=== PATIENT | male | born 1955 | race Caucasian/White ===

== ENCOUNTER 2020-06-06 12:49 | Outpatient (CLI) | payer MEDICARE, SELFPAY ==
[2020-06-06 12:59] VITALS: BP 133/85; PULSE 80; RESP 17; TEMP 36.6; O2SAT 98; BMI 34.8
--- NOTE | 2020-06-06 13:26 | AMB.MCA ---
Patient Information [facility] COVID test results: No Data to Display Criteria/Plan Inclusion/Exclusion Criteria weight >/= 40kg age >/= 65 not requiring hospitalization, not requiring oxygen (if not chronically on oxygen) and no increase oxygen requirement (if chronically on oxygen) Patient education patient/caregiver received/reviewed fact sheet, Emergency Use Authorization/unapproved drug status discussed with patient/caregiver, alternatives to this treatment discussed with patient/caregiver, risks and benefits of medication reviewed with patient/caregiver, patient/caregiver given opportunity for questions, which were answered and patient/caregiver consents to receiving Monoclonal Antibody Treatment Plan for treatment Meets criteria for Monoclonal Antibody infusion
[2020-06-06 14:46] VITALS: BP 112/83; PULSE 65; RESP 17; TEMP 36.7; O2SAT 96
[2020-06-06 15:39] VITALS: BP 132/89; PULSE 79; RESP 18; TEMP 37.1; O2SAT 97
== END 2020-06-06 15:40 | disposition home or self-care (01) ==
LOC: OPS 12:50
PROVIDERS: PCP Family Medicine; Referring Provider Nurse Practitioner Family; Visit Provider Nurse Practitioner
DX: U07.1 COVID-19 (principal)

== ENCOUNTER → 2021-12-19 08:54 | Outpatient (BNVA) | payer MEDICARE, SELFPAY | PROVIDERS: PCP Family Medicine; Visit Provider Family Medicine | DX: E78.5 Hyperlipidemia, unspecified (principal); Z00.00 Encounter for general adult medical examination without abnormal findings | CPT/HCPCS: 80053; 80061; 83036 ==

== ENCOUNTER → 2022-08-14 11:07 | Outpatient (BNVA) | payer MEDICARE, SELFPAY | PROVIDERS: PCP Family Medicine; Visit Provider Family Medicine | DX: N35.919 Unspecified urethral stricture, male, unspecified site (principal); E78.5 Hyperlipidemia, unspecified; R73.03 Prediabetes; I10 Essential (primary) hypertension | CPT/HCPCS: 80053; 80061; 83036; 83735 ==

== ENCOUNTER → 2022-11-08 14:35 | Outpatient (BNVA) | payer MEDICARE, SELFPAY | PROVIDERS: PCP Family Medicine; Visit Provider Family Medicine | DX: L98.9 Disorder of the skin and subcutaneous tissue, unspecified (principal) | CPT/HCPCS: 88304 ==

== ENCOUNTER → 2023-01-21 09:38 | Outpatient (BNVA) | payer MEDICARE, SELFPAY | PROVIDERS: PCP Family Medicine; Visit Provider Family Medicine | DX: I10 Essential (primary) hypertension (principal); F32.A Depression, unspecified; E78.5 Hyperlipidemia, unspecified; R73.03 Prediabetes | CPT/HCPCS: 80053; 80061; 83036 ==

== ENCOUNTER 2023-01-29 10:23 | Outpatient (CLI) | payer MEDICARE, SELFPAY ==
--- NOTE | 2023-01-29 10:42 | XR_ITS ---
WS: [id number] EXAMINATION: XR knee LT 3V* [id number] REASON FOR EXAM: knee pain COMPARISON: None available. ORDER DATE: 01/29/2023 10:49 AM FINDINGS: There are marginal osteophytes associated with the tibial spines, patella and other articular margins with medial and patellofemoral compartment narrowing. There is no sign of any acute fracture or disl ocation. A small joint effusion cannot be excluded but there is no evidence of any large effusion IMPRESSION: MEDIAL AND PATELLOFEMORAL COMPARTMENT NARROWING WITH OSTEOARTHRITIC CHANGES.
--- NOTE | 2023-01-29 10:42 | XR_ITS ---
WS: [id number] EXAMINATION: XR knee RT 3V* [id number] REASON FOR EXAM: knee pain COMPARISON: None available. ORDER DATE: 01/29/2023 10:49 AM FINDINGS: There are marginal osteophytes associated with the tibial spines, patella and other articular margins with medial and patellofemoral compartment narrowing. There is no sign of any acute fracture or disl ocation. A small joint effusion cannot be excluded but there is no evidence of any large effusion IMPRESSION: MEDIAL AND PATELLOFEMORAL COMPARTMENT NARROWING WITH OSTEOARTHRITIC CHANGES.
== END 2023-01-29 10:24 | disposition home or self-care (01) ==
LOC: RAD 10:28
PROVIDERS: PCP Family Medicine; Visit Provider Family Medicine
DX: M17.0 Bilateral primary osteoarthritis of knee (principal)
CPT/HCPCS: 73562

== ENCOUNTER → 2023-04-26 10:03 | Outpatient (BNVA) | payer MEDICARE, SELFPAY | PROVIDERS: PCP Family Medicine; Visit Provider Family Medicine | DX: I10 Essential (primary) hypertension (principal); E78.5 Hyperlipidemia, unspecified; G25.81 Restless legs syndrome | CPT/HCPCS: 80053; 80061 ==

== ENCOUNTER → 2023-07-11 14:50 | Outpatient (BNVA) | payer MEDICARE, SELFPAY | PROVIDERS: PCP Family Medicine; Visit Provider Podiatrist Foot & Ankle Surgery | DX: B35.1 Tinea unguium (principal); R73.03 Prediabetes | CPT/HCPCS: 11721; 99203 ==

== ENCOUNTER → 2023-07-16 09:09 | Outpatient (BNVA) | payer MEDICARE, SELFPAY | PROVIDERS: PCP Family Medicine; Visit Provider Family Medicine | DX: I10 Essential (primary) hypertension (principal); R73.03 Prediabetes; R41.3 Other amnesia; N35.919 Unspecified urethral stricture, male, unspecified site; M15.9 Polyosteoarthritis, unspecified; F32.A Depression, unspecified; E78.5 Hyperlipidemia, unspecified | CPT/HCPCS: 80053; 80061; 83036 ==

== ENCOUNTER 2023-09-26 12:02 | Outpatient (CLI) | payer MEDICARE, SELFPAY ==
[2023-09-26 12:52] LABS: Alanine Aminotransferase 21 U/L (0-41); Albumin Level 3.8 g/dL (3.5-5.2); Alkaline Phosphatase 99 U/L (40-130); Anion Gap 12.7 (5-19); Aspartate Amino Transferase 20 U/L (0-40); Blood Urea Nitrogen 22 mg/dL (8-23); Calcium 8.5 mg/dL (8.5-10.5); Carbon Dioxide 26 mmol/L (22-29); Chloride 107 mmol/L (98-107); Globulin 3.1 g/dL (1.3-4.6); Glomerular Filtration Rate 95.6 mL/min (90-130); Glucose 120 mg/dL (65-115); Osmolality Calculated 297 mOsm/kg (285-295); Potassium 4.7 mmol/L (3.5-5.1); Sodium 141 mmol/L (136-145); Total Bilirubin 0.3 mg/dL (0.15-1.2); Total Protein 6.9 g/dL (6.6-8.7)
== END 2023-09-26 12:03 | disposition home or self-care (01) ==
LOC: LAB 12:04
PROVIDERS: PCP Family Medicine; Visit Provider Podiatrist Foot & Ankle Surgery
DX: B35.1 Tinea unguium (principal)
CPT/HCPCS: 80053

== ENCOUNTER → 2023-10-23 12:58 | Outpatient (BNVA) | payer MEDICARE, SELFPAY | PROVIDERS: PCP Family Medicine; Visit Provider Podiatrist Foot & Ankle Surgery | DX: L60.8 Other nail disorders (principal); B35.1 Tinea unguium; R73.03 Prediabetes | CPT/HCPCS: 11721; 99212 ==

== ENCOUNTER → 2024-01-28 10:12 | Outpatient (BNVA) | payer MEDICARE, SELFPAY | PROVIDERS: PCP Family Medicine; Visit Provider Family Medicine | DX: I10 Essential (primary) hypertension (principal); R73.03 Prediabetes | CPT/HCPCS: 80053; 80061; 83036 ==

== ENCOUNTER → 2024-02-24 08:30 | Outpatient (BNVA) | payer MEDICARE, SELFPAY | PROVIDERS: PCP Family Medicine; Visit Provider Podiatrist Foot & Ankle Surgery | DX: R73.03 Prediabetes (principal); L60.8 Other nail disorders; B35.1 Tinea unguium; R03.0 Elevated blood-pressure reading, without diagnosis of hypertension | CPT/HCPCS: 11721; 99212 ==

== ENCOUNTER → 2024-04-14 11:05 | Outpatient (BNVA) | payer MEDICARE, SELFPAY | PROVIDERS: PCP Family Medicine; Visit Provider Family Medicine | DX: E11.9 Type 2 diabetes mellitus without complications (principal); R60.9 Edema, unspecified | CPT/HCPCS: 80053; 83880; 84443 ==

== ENCOUNTER → 2024-05-25 08:51 | Outpatient (BNVA) | payer MEDICARE, SELFPAY | PROVIDERS: PCP Family Medicine; Visit Provider Podiatrist Foot & Ankle Surgery | DX: B35.1 Tinea unguium (principal); I73.9 Peripheral vascular disease, unspecified; E11.42 Type 2 diabetes mellitus with diabetic polyneuropathy; R60.0 Localized edema | CPT/HCPCS: 11721; 99213 ==

== ENCOUNTER → 2024-07-31 10:47 | Outpatient (BNVA) | payer MEDICARE, SELFPAY | PROVIDERS: PCP Family Medicine; Visit Provider Family Medicine | DX: I10 Essential (primary) hypertension (principal); E78.5 Hyperlipidemia, unspecified; R73.03 Prediabetes; E11.42 Type 2 diabetes mellitus with diabetic polyneuropathy | CPT/HCPCS: 80053; 80061; 83036; 85025 ==

== ENCOUNTER → 2024-08-24 09:06 | Outpatient (BNVA) | payer MEDICARE, SELFPAY | PROVIDERS: PCP Family Medicine; Visit Provider Podiatrist Foot & Ankle Surgery | DX: E11.42 Type 2 diabetes mellitus with diabetic polyneuropathy (principal); B35.1 Tinea unguium; E11.8 Type 2 diabetes mellitus with unspecified complications; I73.9 Peripheral vascular disease, unspecified; R60.0 Localized edema | CPT/HCPCS: 11721 ==

== ENCOUNTER → 2024-08-31 10:10 | Outpatient (BNVA) | payer MEDICARE, SELFPAY | PROVIDERS: PCP Family Medicine; Visit Provider Student in an Organized Health Care Education/Training Program | DX: Z12.11 Encounter for screening for malignant neoplasm of colon (principal) | CPT/HCPCS: 99024; 99204 ==

== ENCOUNTER 2024-09-10 07:11 | Outpatient (CLI) | payer MEDICARE, SELFPAY ==
--- NOTE | 2024-09-10 07:15 | USCV_ITS ---
Flynn Mcintosh Age: 69 Gender: M : 1955 Exam Date: 09/10/2024 07:28 Ordering Phys: Daniel Maloney MD Technologist: KEYANNA Exam Location: [facility] [place] Indication: SoB BP: 130 / 78 HR: 67 Rhythm: Sinus Technical Quality: Adequate MEASUREMENTS (Male / Female) Normal Values 2D ECHO LV Diastolic Diameter PLAX 7.0 cm 4.2 - 5.9 / 3.9 - 5.3 cm IVS Diastolic Thickness 1.0 cm 0.6 - 1.0 / 0.6 - 0.9 cm IVS Systolic Thickness 1.5 cm LVPW Diastolic Thickness 0.9 cm 0.6 - 1.0 / 0.6 - 0.9 cm LVPW Systolic Thickness 1.3 cm LVOT Diameter 2.0 cm LV Ejection Fraction 2D Teich 61.9 % LV Ejection Fraction MOD 4C 64.0 % LV Ejection Fraction MOD 2C 70.7 % LV Ejection Fraction 2C AL 71.0 % LA Diameter 4.4 cm RA Systolic Volume 4C AL 50.0 ml RA Systolic Volume 4C MOD 49.8 ml Aorta at Sinotubular Diameter 2.7 cm M-MODE LA Ao Ratio MM 1.6 AV Cusp Separation MM 1.7 cm DOPPLER AV Peak Velocity 160.0 cm/s LVOT Peak Velocity 147.0 cm/s AV Area Cont Eq vti 3.0 cm squared AV Area Cont Eq pk 3.0 cm squared MV Peak Velocity 116.0 cm/s MV Area PHT 4.6 cm squared Mitral E to A Ratio 0.8 TR Peak Velocity 178.0 cm/s TR Peak Gradient 12.7 mmHg TV Peak E Velocity 79.0 cm/s PV Peak Velocity 140.0 cm/s FINDINGS Left Ventricle Left ventricle is normal in size. LV systolic function is normal with EF of 55-60%. No regional wall motion abnormalities. Grade 1 diastolic dysfunction Right Ventricle Normal in size and function Right Atrium Normal in size Left Atrium Normal in size Mitral Valve Structurally normal mitral valve. Mild mitral regurgitation. Aortic Valve Structurally normal aortic valve. No significant stenosis or regurgitation. Tricuspid Valve Insufficient TR jet to calculate RVSP Pulmonic Valve Not well visualized Pericardium Normal Aorta Normal in size IVC Appears to be normal CONCLUSIONS LV systolic function is normal with EF of 55-60% Grade 1 diastolic dysfunction Mild mitral regurgitation No comparison studies are available. Malachi Fernandez MD (Electronically Signed) Final Date: 30 September 2024 12:19 S
== END 2024-09-10 07:12 | disposition home or self-care (01) ==
PROVIDERS: PCP Family Medicine; Visit Provider Family Medicine
DX: R07.9 Chest pain, unspecified (principal); R06.00 Dyspnea, unspecified; R93.1 Abnormal findings on diagnostic imaging of heart and coronary circulation; I34.0 Nonrheumatic mitral (valve) insufficiency
CPT/HCPCS: 93306

== ENCOUNTER 2024-10-06 09:24 | Day surgery (SDC) | payer MEDICARE, SELFPAY ==
[2024-10-06 09:38] VITALS: BP 108/75; PULSE 81; RESP 18; TEMP 36.6; O2SAT 93; BMI 35.2
--- NOTE | 2024-10-06 09:51 | ANES.PREANE2 ---
Pre-Anesthetic Assessment Height/Weight: Height 1.78 m Weight 111.13 kg Temp Pulse Resp BP Pulse Ox O2 Del Method 97.9 F 81 18 108/75 93 Room Air 10/06/24 09:38 10/06/24 09:38 10/06/24 09:38 10/06/24 09:38 10/06/24 09:38 10/06/24 09:38 Preop Diagnosis: screening Operation Date: 10/06/24 10:45 Proposed Procedures p Colonoscopy 38590 G0121, Z12.11(Not Applicable) - Pietro Perdomo MD Familial anesthetic complications: none Was Beta Alfred taken within 24 hours: N/A Was Clonidine taken within 24 hours: N/A Last intake: Intake Last Liquid Date 10/05/24 Last Liquid Time 23:00 Last Solid Date 10/04/24 Last Solid Time 22:00 Social No alcohol and No tobacco Exam alert, oriented x 3, clear to auscultation bilaterally and regular rate & rhythm Airway Submandibular: within normal limits Cervical ROM: within normal limits Mallampati: Class II Dentition: full History/ROS No significant history except as noted and No significant complaints Pulmonary Exertional Dyspnea, Sleep Apnea and Shortness of Breath SOB with vigorous activity CV/HEM Peripheral Vascular Disease None reported Hepatic None reported GI Gastroesophageal Reflux Disease Metabolic Diabetes Mellitus [facility] [place] None reported Neuropsych Neuropathy memory loss Anesthetic Plan ASA status: 3 Anesthesia: MAC Risk of > 500 ml blood loss (7ml/kg in children): No Medications/Allergies Home Medications ?Medication ?Instructions ?Recorded ?Confirmed ?Last Taken ?Type aspirin 81 mg tablet,delayed 81 mg PO DAILY 05/07/19 10/06/24 10/05/24 History release Osteo Bi-Flex Triple Strength 1 applic topical BID 06/06/20 10/06/24 10/05/24 History magnesium 200 mg tablet 400 mg PO DAILY 06/06/20 10/06/24 10/05/24 History zinc 50 mg tablet 50 mg PO DAILY 06/06/20 10/06/24 10/05/24 History triamcinolone acetonide 0.5 % 1 applic topical BID #45 grams 11/19/22 10/06/24 10/05/24 Rx topical cream C-pap machine mask and hose, #1 ea 05/13/23 10/06/24 10/05/24 Rx supplies terbinafine HCl 250 mg tablet 250 mg PO DAILY 30 days #30 tabs 07/29/23 10/06/24 10/05/24 Rx tamsulosin 0.4 mg capsule 0.4 mg PO DAILY #90 caps 07/31/23 10/06/24 10/05/24 Rx amitriptyline 50 mg tablet 50 mg PO DAILY #90 tabs 02/04/24 10/06/24 10/05/24 Rx gabapentin 300 mg capsule 600 mg (2 x 300 mg) PO .HS #180 08/20/24 10/06/24 10/05/24 Rx caps trospium 20 mg tablet 20 mg PO DAILY 08/31/24 10/06/24 10/05/24 History fluoxetine 40 mg capsule 40 mg PO DAILY 10/01/24 10/06/24 10/05/24 History fluticasone propionate 50 2 spray intranasal DAILY 10/01/24 10/06/24 10/05/24 History mcg/actuation nasal spray,suspension meloxicam 15 mg tablet 15 mg PO DAILY 10/01/24 10/06/24 10/05/24 History pantoprazole 40 mg tablet,delayed 40 mg PO DAILY 10/01/24 10/06/24 10/05/24 History release pravastatin 10 mg tablet 10 mg PO DAILY 10/01/24 10/06/24 10/05/24 History Allergies Allergy/AdvReac Type Severity Reaction Status Date / Time celecoxib (From Celebrex) Allergy Intermediate hives Verified 10/01/24 10:53 penicillamine Allergy ALGY-Rash Verified 10/01/24 10:53 Sulfa (Sulfonamide Allergy ALGY-Rash Verified 10/01/24 10:53 Antibiotics) [facility] Anesthesia Medical History Hypertension Borderline diabetes mellitus Osteoarthritis Depression Obstructive sleep apnea Hyperlipemia Surgical History H/O repair of rotator cuff right History of back surgery By, in [place] [place] on 03/25/19 H/O repair of rotator cuff right; By Dr. Song in 06/2011 Family History Father Cancer Hyperlipidemia Brother Cancer Grandfather Dementia Stroke Mother Diabetes Denies family history of CAD (coronary artery disease) Clotting disorder Psychiatric illness Chronic kidney disease (CKD) Suicide Anesthesia complication Bleeding disorder Family history of premature coronary artery disease Lung disease Hypertension Social History Smoking and tobacco/nicotine status: never used tobacco/nicotine Alcohol intake: never Substance/Drug Use: never Current occupational status: retired Data Anesthesia Cardiac Studies: Echocardiogram 09/10/24
[2024-10-06] MEDS: sodium chloride 0.9% 1,000 ML 15 ML IV (09:54)
--- NOTE | 2024-10-06 10:04 | W.PM.OPSFHP ---
Same Day Surgery H&P Indication for Procedure/HPI DATE OF PROCEDURE: October 06, 2024 CHIEF COMPLAINT/INDICATIONFOR SURGICAL PROCEDURE: screening colonoscopy PREOP DIAGNOSIS: screening colonoscopy PLANNED PROCEDURE: Operation Date: 10/06/24 10:45 Proposed Procedures p Colonoscopy 69778 G0121, Z12.11(Not Applicable) - Pietro Perdomo MD Medications/Allergies* Home Medications ?Medication ?Instructions ?Recorded ?Confirmed ?Type aspirin 81 mg tablet,delayed 81 mg PO DAILY 05/07/19 10/06/24 History release Osteo Bi-Flex Triple Strength 1 applic topical BID 06/06/20 10/06/24 History magnesium 200 mg tablet 400 mg PO DAILY 06/06/20 10/06/24 History zinc 50 mg tablet 50 mg PO DAILY 06/06/20 10/06/24 History trospium 20 mg tablet 20 mg PO DAILY 08/31/24 10/06/24 History fluoxetine 40 mg capsule 40 mg PO DAILY 10/01/24 10/06/24 History fluticasone propionate 50 2 spray intranasal DAILY 10/01/24 10/06/24 History mcg/actuation nasal spray,suspension meloxicam 15 mg tablet 15 mg PO DAILY 10/01/24 10/06/24 History pantoprazole 40 mg tablet,delayed 40 mg PO DAILY 10/01/24 10/06/24 History release pravastatin 10 mg tablet 10 mg PO DAILY 10/01/24 10/06/24 History Allergies/Adverse Reactions Allergy/AdvReac Type Severity Reaction Status Date / Time celecoxib (From Celebrex) Allergy Intermediate hives Verified 10/01/24 10:53 penicillamine Allergy ALGY-Rash Verified 10/01/24 10:53 Sulfa (Sulfonamide Allergy ALGY-Rash Verified 10/01/24 10:53 Antibiotics) Current Medications: Generic Name Dose Route Start Last Admin Trade Name Freq PRN Reason Stop Dose Admin Sodium Chloride 1,000 mls @ 15 mls/hr 10/06/24 09:30 10/06/24 09:54 Sodium Chloride 0.9% IV 10/07/24 09:29 15 mls/hr .Q24H PRN Administration COLONOSCOPY FLUIDS Pertinent History/Comorbid Conditions* Medical History (Updated 08/12/24 @ 09:19 by Daniel Maloney MD) Hypertension Borderline diabetes mellitus Osteoarthritis Depression Obstructive sleep apnea Hyperlipemia Surgical History (Updated 10/13/19 @ 11:22 by Castillo Roberts DPM) H/O repair of rotator cuff right History of back surgery By, in [facility] on 03/25/19 H/O repair of rotator cuff right; By Dr. Song in 06/2011 Family History (Updated 05/07/19 @ 10:31 by Adelita Zamora LPN) Diabetes Mother Dementia Grandfather Hyperlipidemia Father Cancer Father Brother Stroke Grandfather Denies family history of CAD (coronary artery disease) Clotting disorder Psychiatric illness Chronic kidney disease (CKD) Suicide Anesthesia complication Bleeding disorder Family history of premature coronary artery disease Lung disease Hypertension Social History Smoking and tobacco/nicotine status: never used tobacco/nicotine Alcohol intake: never Substance/Drug Use: never Current occupational status: retired Pertinent Exam Findings alert, oriented x 3, clear to auscultation bilaterally, regular rate & rhythm and procedure specific exam findings abdomen soft, nt, nd Recommendations Risks and benefits of procedure reviewed and Patient/family agree to proceed Surgery/Procedure today Coding Level of Care Code Acute Code for Chg Mitra
[2024-10-06 10:32] VITALS: BP 97/67; PULSE 66; RESP 18; TEMP 36.6; O2SAT 96
[2024-10-06 10:47] VITALS: BP 118/73; PULSE 63; RESP 18; TEMP 36.2; O2SAT 97
--- NOTE | 2024-10-06 11:10 | ANE.PACU2 ---
Inpatient post-anesthesia follow up: Airway intact: Yes Vital signs: Temperature 97.2 F Pulse Rate 63 Respiratory Rate 18 Blood Pressure 118/73 Pulse Oximetry 97 Oxygen Delivery Me thod Room Air Oxygen Flow Rate Fraction of Inspir ed Oxygen Hydration adequate: Yes Nausea and vomiting: No Pain level: 1 Mental status: Baseline
== END 2024-10-06 11:12 | disposition home or self-care (01) ==
PROVIDERS: PCP Family Medicine; Visit Provider Student in an Organized Health Care Education/Training Program
PROC: 0DJD8ZZ Inspection of Lower Intestinal Tract, Via Natural or Artificial Opening Endoscopic (ICD-10-PCS; CPT 45378; principal; 2024-10-06 10:45)
DX: Z12.11 Encounter for screening for malignant neoplasm of colon (principal); K57.30 Diverticulosis of large intestine without perforation or abscess without bleeding; D12.5 Benign neoplasm of sigmoid colon; E11.51 Type 2 diabetes mellitus with diabetic peripheral angiopathy without gangrene; K21.9 Gastro-esophageal reflux disease without esophagitis; E11.40 Type 2 diabetes mellitus with diabetic neuropathy, unspecified; I10 Essential (primary) hypertension; E78.5 Hyperlipidemia, unspecified; G47.33 Obstructive sleep apnea (adult) (pediatric); Z79.82 Long term (current) use of aspirin; Z79.899 Other long term (current) drug therapy; Z88.8 Allergy status to other drugs, medicaments and biological substances; Z88.2 Allergy status to sulfonamides; Z88.0 Allergy status to penicillin
CPT/HCPCS: 45385; 88305; J2704; J7030

== ENCOUNTER → 2024-11-23 09:31 | Outpatient (BNVA) | payer MEDICARE, SELFPAY | PROVIDERS: PCP Family Medicine; Visit Provider Podiatrist Foot & Ankle Surgery | DX: E11.42 Type 2 diabetes mellitus with diabetic polyneuropathy (principal); B35.1 Tinea unguium; E11.8 Type 2 diabetes mellitus with unspecified complications; I73.9 Peripheral vascular disease, unspecified; R60.0 Localized edema | CPT/HCPCS: 11721 ==

== ENCOUNTER 2025-01-06 09:34 | Outpatient (CLI) | payer SELFPAY ==
--- NOTE | 2025-01-06 09:30 | US_ITS ---
WS: [id number] TESTICULAR ULTRASOUND HISTORY: possible scrotal abscess COMPARISON: None available. TECHNIQUE: Real-time and color Doppler imaging utilized to perform a testicular ultrasound. Right testicle: 2.8 cm x 1.7 cm x 2.2 cm. Normal size and echogenicity. No mass or torsion. Normal color Doppler is present throughout. Systolic and diastolic velocities are both present. Large RIGHT simple hydrocele. Right epididymis: Heterogeneous epididymis. No color Doppler submitted. Left testicle: 3.5 cm x 2.1 cm x 1.7 cm. Normal size and echogenicity. No mass or torsion. Normal color Doppler is present throughout. Systolic and diastolic velocities are both present. No significant hydrocele. Left epididymis: Normal epididymis with no increased vascularity. There is diffuse scrotal wall thickening and edema. There is a more focal area of thickening and heterogeneity along the posterior scrotum with increased vascularity. The entire area of soft tissue thickening along the posterior scrotum measures 3.5 x 2.1 x 5.4 cm. Centrally there is an area of decreased echogenicity measuring 2.2 x 1.1 x 3.2 cm which is probably a developing phlegmon. No liquefied center. US/US scrotum [id number] IMPRESSION: 1. Focal, posterior scrotal wall thickening with edema and central phlegmon. T he entire complex measures 3.5 x 2.1 x 5.4 cm. There is no liquefied abscess ce ntrally. There is a phlegmon measuring 2.2 x 1.1 x 3.2 cm. 2. Additional diffuse milder scrotal wall thickening. 3. Large RIGHT hydrocele. 4. No testicular mass or torsion.
== END 2025-01-06 09:35 | disposition home or self-care (01) ==
LOC: RAD 09:37
PROVIDERS: PCP Family Medicine; Visit Provider Family Medicine
DX: N49.2 Inflammatory disorders of scrotum (principal)
CPT/HCPCS: 76870

== ENCOUNTER → 2025-04-06 08:30 | Outpatient (BNVA) | payer MEDICARE, SELFPAY | PROVIDERS: PCP Family Medicine; Visit Provider Family Medicine | DX: I10 Essential (primary) hypertension (principal); E78.5 Hyperlipidemia, unspecified; R35.1 Nocturia | CPT/HCPCS: 80053; 80061; 83036; 84153; 85025 ==